=== PATIENT | male | born 1960 | race Caucasian/White ===

== ENCOUNTER 2018-12-02 14:52 | Outpatient (CLI) | payer MEDICARE, MEDICAID | END 2018-12-02 14:53 | disposition home or self-care (01) | LOC: CTENTCT 14:52 | PROVIDERS: ATTEND Specialist | DX: J32.8 Other chronic sinusitis (principal) | CPT/HCPCS: 70486 ==

== ENCOUNTER 2018-12-24 12:49 | Day surgery (SDC) | payer MEDICARE, MEDICAID ==
[2018-12-24] MEDS ORDERED: Oxymetazoline HCl 0.05% ( 15 ML ) ONE ×2 (14:00→14:49)
[2018-12-24] MEDS ORDERED: Lidocaine 1% w/Epinephrine 1:100K 20 ML VIAL ONE (14:49)
[2018-12-24] MEDS ORDERED: EPINEPHrine 1 MG/ML AMP ONE (14:49)
[2018-12-24] MEDS ORDERED: Sodium Chloride 0.9% 0 ML ONE (14:49)
[2018-12-24] MEDS ORDERED: Midazolam HCl 2 mg/2 ml Vial ONE (15:00)
[2018-12-24] MEDS ORDERED: Fentanyl 100 MCG/2 ML VIAL ONE (15:00)
--- NOTE | 2018-12-24 21:54 | OP ---
DATE OF PROCEDURE: 12/24/2018 PREOPERATIVE DIAGNOSES: 1. Chronic sinusitis. 2. Recurrent sinusitis. 3. Hypertrophic inferior turbinates. POSTOPERATIVE DIAGNOSES: 1. Chronic sinusitis. 2. Recurrent sinusitis. 3. Hypertrophic inferior turbinates. PROCEDURES PERFORMED: 1. Bilateral nasal endoscopy with maxillary antrostomy. 2. Bilateral nasal endoscopy with total ethmoidectomy. 3. Bilateral nasal endoscopy with frontal sinusotomy. 4. Bilateral nasal endoscopy with submucosal resection of inferior turbinates. FINDINGS: The patient had huge green foul-smelling infected material evacuated from both maxillary sinuses and sent for culture. DESCRIPTION OF PROCEDURE: BILATERAL NASAL ENDOSCOPY WITH MAXILLARY ANTROSTOMY: The uncinate was then identified and the extent of the uncinate was appreciated by out-fracturing the uncinate with the ball-tip probe. We then used the sickle blade to disarticulate the uncinate from the lateral nasal wall. This was then removed with straight biting and upbiting punches with the remaining shrouds of mucosa and bony septum removed with the micro-debrider. The natural os of the maxillary sinus was then identified and enlarged with the maxillary punches and back biting forceps. BILATERAL NASAL ENDOSCOPY WITH TOTAL ETHMOIDECTOMY: The anterior face of the ethmoid bulla was entered and with the micro-debrider, dissection continued posteriorly to the ground lamella. The limits of dissection included the insertion of the middle turbinate, medial orbital wall, and base of skull. We similarly identified the frontal recess and removed shrouds of bone and debris in that region to obtain patency into the agger nasi region and frontal recess. We then entered the ground lamella and its anteroinferior aspect and proceeded posteriorly, opening the posterior ethmoid air-cell system. Again, the limits of dissection included the base of skull and medial orbital wall. BILATERAL NASAL ENDOSCOPY WITH FRONTAL SINUSOTOMY: Following the ethmoidectomy, we then turned our attention to the frontal nasal recess. The agger nasi cells were addressed and the frontal recess was exposed. The natural opening to the frontal sinus was identified. At this point, any obstructing shrouds of mucosa and bony fragments were removed with a curved microdebrider. The wound was then examined and found to be free of any obstructing debris. We then turned our attention to the contralateral side and performed a similar procedure again under endoscopic visualization using a 45-degree scope. We were able to visualize the frontal recess. Obstructing shrouds of mucosa and bone were removed with a microdebrider. The natural os of frontal sinus was identified and enlarged and irrigated. At this point, the frontal sinusotomy was completed and we turned to the next area of concern. BILATERAL NASAL ENDOSCOPY WITH SUBMUCOSAL RESECTION OF INFERIOR TURBINATES: After consent was obtained, the patient was identified, brought to the operating room, and placed on the operating room table in the supine position. Consent was obtained, notifying the patient of the possibility of additional infections, bleeding, brain injury, and eye/orbital injury. The patient was placed on the operating room table, and general endotracheal anesthesia and intravenous access was obtained. The patient was then positioned, prepped and draped for endoscopic sinus surgery. Nasal preparation included trimming nasal vestibular hairs and spraying in topical Afrin. We then placed Afrin topical solution on nasal pledgets and strategically located them intranasally. The perinasal mucosa was injected with 1% lidocaine with 1:100,000 epinephrine in the submucoperichondrial plane of the septum, lateral nasal wall, and anterior to the uncinate. The patient was then prepped and draped in a sterile fashion and positioned for endoscopic sinus surgery. With the 0-degree endoscope, the patient underwent systematic nasal endoscopy. There were no suspicious internasal masses or lesions identified. We then focused our attention to the osteomeatal complex region under the middle turbinate. The inferior turbinates were visualized with a 0 degree endoscope and outfractured with a Chama elevator. The inferior medial aspect was cauterized with the electrocautery. Hemostasis was obtained . After adequate airway was established, we turned our attention to the contralateral side and used a similar procedure. Again, a Chama elevator was used to outfracture inferior turbinates under endoscopic visualization. With a suction cautery, the free inferior medial aspect was cauterized under direct visualization along the length of the inferior turbinate. At this point, we then turned our attention to the contralateral side and proceeded with endoscopic sinus surgery. At the completion of the case, Rice keel splints were placed in the ethmoid cavities after the ethmoidectomy. There were no complications. The patient tolerated the procedure well and was discharged to the recovery room in stable condition prior to return to the preoperative day stay with ultimate discharge home. Prescriptions for pain medication and antibiotics were provided. The patient received intramuscular Depo-Medrol during the case. Job ID: [id number]
--- NOTE | 2018-12-24 23:53 | EKG ---
Test Reason : PREOP Blood Pressure : / mmHG Vent. Rate : 069 BPM Atrial Rate : 069 BPM P-R Int : 160 ms QRS Dur : 100 ms QT Int : 402 ms P-R-T Axes : 075 -05 087 degrees QTc Int : 430 ms Normal sinus rhythm Abnormal ECG Confirmed by Vincent COLLINS ([id number]) on 12/24/2018 11:53:30 PM Referred By: OSMAN Confirmed By:Vincent COLLINS
== END 2018-12-24 17:15 | disposition home or self-care (01) ==
LOC: SDC 12:49
PROVIDERS: ATTEND Specialist
PROC: 099R8ZZ Drainage of Left Maxillary Sinus, Via Natural or Artificial Opening Endoscopic (ICD-10-PCS; principal; 2018-12-24)
PROC: 099Q8ZZ Drainage of Right Maxillary Sinus, Via Natural or Artificial Opening Endoscopic (ICD-10-PCS; 2018-12-24)
PROC: 09BL8ZZ Excision of Nasal Turbinate, Via Natural or Artificial Opening Endoscopic (ICD-10-PCS; 2018-12-24)
PROC: 09TV8ZZ Resection of Left Ethmoid Sinus, Via Natural or Artificial Opening Endoscopic (ICD-10-PCS; 2018-12-24)
PROC: 09TU8ZZ Resection of Right Ethmoid Sinus, Via Natural or Artificial Opening Endoscopic (ICD-10-PCS; 2018-12-24)
PROC: 09BT8ZZ Excision of Left Frontal Sinus, Via Natural or Artificial Opening Endoscopic (ICD-10-PCS; 2018-12-24)
PROC: 09BS8ZZ Excision of Right Frontal Sinus, Via Natural or Artificial Opening Endoscopic (ICD-10-PCS; 2018-12-24)
DX: J32.1 Chronic frontal sinusitis (principal); J30.89 Other allergic rhinitis; J34.3 Hypertrophy of nasal turbinates; F41.9 Anxiety disorder, unspecified; F32.9 Major depressive disorder, single episode, unspecified; Z79.82 Long term (current) use of aspirin; Z79.899 Other long term (current) drug therapy
CPT/HCPCS: 87070; 87205; 93005; 93010; J0171; J2001; J2250; J3010

== ENCOUNTER 2019-04-08 08:46 | Outpatient (CLI) | payer MEDICARE, MEDICAID ==
[2019-04-08 14:21] LABS: #Eosinphils 0.4 thou/uL (0.0-0.7); #Lymphocytes 2.1 thou/uL (1.20-3.40); #Monocytes 0.9 thou/uL (0.11-0.59); #Neutrophils 5.6 thou/uL (1.40-6.50); %Basophils 0.4 % (0.0-1.0); %Eosinophils 4.1 % (0.0-10.0); %Lymphocytes 23.4 % (21.0-51.0); %Monocytes 9.6 % (0.0-10.0); %Neutrophils 62.5 % (42.0-75.0); Hemoglobin 12.4 g/dL (14.0-18.0); Mean Corpuscular HGB CONC 31.7 g/dL (32.0-36.0); Mean Corpuscular Hemoglobin 25.8 pg (27.0-31.0); Mean Corpuscular Volume 81.3 fL (78.0-98.0); Mean Platelet Volume 7.7 fL (7.4-10.4); Platelet Count 318 thou/uL (130-400); RBC Distribution Width 15.1 % (11.5-14.5); Red Blood Cell (RBC) Count 4.82 mill/uL (4.70-6.10); White Blood Cell (WBC) Count 8.9 thou/uL (4.8-10.8)
[2019-04-08 14:33] LABS: INR-International Normal Ratio 1.1; PTT 27.6 SEC (22.9-36.1); Prothrombin Time 13.8 SEC (12.0-14.7)
[2019-04-08 14:46] LABS: Anion Gap 17 mmol/L (10-20); BUN (Urea Nitrogen) 17 mg/dL (8.4-25.7); Calc. Creatinine Clearance 0 mL/min (70-130); Calcium 9.6 mg/dL (7.8-10.44); Carbon Dioxide 25 mmol/L (22-29); Chloride 105 mmol/L (98-107); Estimated GFR-MDRD 51; Glucose 91 mg/dL (70-105); Potassium 4.2 mmol/L (3.5-5.1); Sodium 143 mmol/L (136-145)
== END 2019-04-08 08:47 | disposition home or self-care (01) ==
LOC: LABBT 08:46
PROVIDERS: ATTEND Orthopaedic Surgery
DX: Z01.818 Encounter for other preprocedural examination (principal); M87.052 Idiopathic aseptic necrosis of left femur
CPT/HCPCS: 80048; 85025; 85610; 85730; 87081; 93005; 93010

== ENCOUNTER 2019-04-08 15:30 | Inpatient (IN) | payer MEDICARE, MEDICAID ==
[2019-04-08 12:50] VITALS: BMI 25.1
--- NOTE | 2019-04-15 09:07 | HP ---
HISTORY OF PRESENT ILLNESS: The patient is a 58-year-old male, HIV positive, with a several-year history of avascular necrosis of the left hip. He was initially followed conservatively, but over the past 6 to 12 months, he has noticed progressive pain, has had progressive x-ray changes and collapse by x-ray and MRI scan. He has had progressive pain despite rest, restriction of activities, use of a walker, anti-inflammatory medications, and lifestyle adjustments. His pain has now progressed to the point that is interfering with day-to-day activities including walking, getting dressed, and sleeping. PAST MEDICAL HISTORY: As noted above. The patient is HIV positive and also has history of testicular cancer. The HIV is under remission, has followed by Dr. Frias in [place], has been seen and cleared him for surgery. He also has history of depression. CURRENT MEDICATIONS: Include: 1. Meloxicam. 2. Epivir. 3. Etravirine. 4. Norvir. 5. Prezista. 6. Fluconazole. 7. Flomax. 8. Crestor. 9. TriCor. 10. Diltiazem. 11. Nexium. 12. Valtrex. 13. Paxil. 14. Wellbutrin. 15. Buspirone. 16. Trazodone. 17. Xanax. 18. Aricept. 19. Namenda. 20. Lovaza. 21. Percocet. ALLERGIES: HE HAS NO KNOWN ALLERGIES. FAMILY HISTORY: Otherwise, unremarkable. SOCIAL HISTORY: Otherwise, unremarkable. REVIEW OF SYSTEMS: Otherwise, unremarkable. PHYSICAL EXAMINATION: GENERAL: Revealed a thin, healthy, somewhat chronically ill-appearing male, who is alert and oriented. HEENT: Unremarkable. NECK: Supple. CHEST: Clear. HEART: Regular rate and rhythm. ABDOMEN: Soft, nontender. RECTAL: Deferred. GENITAL: Deferred. EXTREMITIES: Pertinent findings of the left hip, there is tenderness in the anterior hip. There is left antalgic gait. There is decreased range of motion and groin pain with internal rotation of the hip. Neurovascular exam is intact. Examination of the left knee reveals no point tenderness with full range of motion and no instability. DIAGNOSTIC STUDIES: X-rays of the left hip reveal changes consistent with avascular necrosis with further collapse of the femoral head compared to previous x-rays. This has also been documented on previous MRI scan. X-rays of the left knee are negative except for old Clifford-Schlatter's disease. IMPRESSION: 1. Avascular necrosis and degenerative arthritis, left hip. 2. History of human immunodeficiency virus. PLAN: Left total hip replacement. The nature of the surgery, length of recovery, and potential complications such as infection, loss of motion, incomplete relief, thromboembolic phenomenon, neurovascular injury, leg length discrepancy, possible transfusion, and need for revision have been discussed in detail. Job ID: [id number]
[2019-04-16 16:32] LABS: Bacteria/HPF None Seen HPF (None Seen); Bilirubin Negative (Negative); Blood, Urine Negative (Negative); Clarity Clear (Clear); Glucose, Urine (Dipstick) Normal (Negative); Leukocyte Negative Leu/uL (Negative); Nitrite Negative (Negative); Protein, Urine (Dipstick) 10 mg/dL (Neg-Trace); RBC/HPF 0-3 HPF (0-3); Squamous Epithelial None Seen HPF (0-3); Urobilinogen Normal mg/dL (Less than 2); WBC/HPF 0-3 HPF (0-3)
[2019-04-19] MEDS ORDERED: Tranexamic Acid 1,000 MG/10 ML VIAL ONE ×2 (09:32→13:13)
[2019-04-19] MEDS ORDERED: Sodium Chloride 0.9% 100 ML ONE (09:32)
[2019-04-19] MEDS ORDERED: Fentanyl 100 MCG/2 ML VIAL ONE ×3 (09:39→14:17)
[2019-04-19] MEDS ORDERED: Midazolam HCl 2 mg/2 ml Vial ONE (09:43)
[2019-04-19] MEDS ORDERED: Acetaminophen 500 MG TAB PO PRN (10:21)
[2019-04-19] MEDS ORDERED: Naloxone HCl 0.4 mg/ml Vial IV PRN (10:30)
[2019-04-19] MEDS ORDERED: Promethazine HCl 25 MG SUPP PR PRN (10:30)
[2019-04-19] MEDS ORDERED: HYDROcodone/Acetaminophen 5/325 mg Tablet PO PRN ×2 (10:30)
[2019-04-19] MEDS ORDERED: traMADol HCl 50 MG TAB PO PRN ×3 (10:30→13:11)
[2019-04-19] MEDS ORDERED: diphenhydrAMINE 50 MG/ML VIAL IM PRN (10:30)
[2019-04-19] MEDS ORDERED: Promethazine HCl 25 MG/ML VIAL IM PRN (10:30)
[2019-04-19] MEDS ORDERED: Ondansetron PF 4 MG/2 ML Vial IVP PRN ×2 (10:30→13:11)
[2019-04-19] MEDS ORDERED: Zolpidem Tartrate 5 MG TAB PO PRN ×2 (10:30→13:11)
[2019-04-19] MEDS ORDERED: Bupivacaine 0.25% 10 ML VIAL EPIDURAL PRN (10:30)
[2019-04-19] MEDS ORDERED: Hydrocerin (Eucerin) Cream 120 gm Jar TOP PRN (10:30)
[2019-04-19] MEDS ORDERED: diphenhydrAMINE 50 MG/ML VIAL IVP PRN (10:30)
[2019-04-19] MEDS ORDERED: diphenhydrAMINE 25 MG CAP PO PRN ×2 (10:30→13:11)
[2019-04-19] MEDS ORDERED: Naloxone HCl 0.4 mg/ml Vial IVP PRN (10:30)
[2019-04-19] MEDS ORDERED: PROPOFOL 200 MG/20 ML VIAL ONE (10:40)
[2019-04-19] MEDS ORDERED: Ondansetron PF 4 MG/2 ML Vial ONE (10:40)
[2019-04-19] MEDS ORDERED: Glycopyrrolate 0.2 MG/ML 5 ML SYRINGE ONE ×2 (10:40)
[2019-04-19] MEDS ORDERED: Lidocaine 1% PF 5 ML VIAL ONE (10:40)
[2019-04-19] MEDS ORDERED: Rocuronium Bromide 10 MG/ML (10ML VIAL) ONE (10:40)
[2019-04-19] MEDS ORDERED: ePHEDrine/0.9% NaCl/PF SYRINGE 50 mg/10 ml ONE (10:40)
[2019-04-19] MEDS ORDERED: Lidocaine 1.5% w/Epi 1:200K 30 ML VIAL (Epid Use) ONE (10:40)
[2019-04-19] MEDS ORDERED: Dexamethasone 20 MG/5 ML VIAL ONE (10:40)
[2019-04-19] MEDS ORDERED: PHENYLEPHRINE-NS 100 MCG/ML 10 ML SYRINGE ONE (10:40)
[2019-04-19] MEDS ORDERED: Albuterol Sulfate HFA (OR ONLY) ONE (10:56)
[2019-04-19] MEDS ORDERED: Phenylephrine HCL 10 MG/ML VIAL ONE (11:37)
[2019-04-19] MEDS ORDERED: Albumin 5% 500 ML ONE (12:15)
[2019-04-19] MEDS ORDERED: SUGAMMADEX SODIUM 500 MG/5 ML VIAL ONE (13:04)
[2019-04-19] MEDS ORDERED: Acetaminophen 325 MG TAB PO PRN (13:11)
[2019-04-19] MEDS ORDERED: Acetaminophen/Codeine 30-300mg Tablet PO PRN ×4 (13:11→13:55)
[2019-04-19] MEDS ORDERED: Promethazine HCl 25 MG/ML VIAL SLOW IVP PRN (13:11)
[2019-04-19] MEDS ORDERED: Fentanyl 100 MCG/2 ML VIAL SLOW IVP PRN ×2 (13:11)
[2019-04-19] MEDS ORDERED: PROVENTIL INHALER 6.7 G (200 INHALATIONS) INH PRN (13:11)
[2019-04-19] MEDS ORDERED: Tranexamic Acid 1,000 MG in Sodium Chloride 0.9% 100 ML IVPB SCH ×2 (13:11→13:15)
--- NOTE | 2019-04-19 13:39 | RAD ---
Radiograph left hip 2 views: DATE: 04/19/2019 HISTORY: 58-year-old male status post left hip surgery for chronic pain FINDINGS: Metallic acetabular cup articulates with metallic femoral head prostheses with stem that reaches prox imal femoral diaphysis. Overlying subcutaneous emphysema indicate recent status of surgery. IMPRESSION: Very recently status post total left hip replacement arthroplasty.
--- NOTE | 2019-04-19 13:40 | OP ---
DATE OF PROCEDURE: 04/19/2019 This is Keyon Acevedo PA-C dictating a report for Luis Armando Gordillo MD. ANESTHESIA: General via endotracheal tube, augmented with indwelling epidural. PREOPERATIVE DIAGNOSIS: Left hip avascular necrosis, femoral head. POSTOPERATIVE DIAGNOSIS: Left hip avascular necrosis, femoral head. PROCEDURE: Press-fit left total hip arthroplasty. R D ENGINEER: Keyon Acevedo PA-C. COMPONENTS USED: [employer] Trident PSL press-fit 54 mm cluster acetabular shell with 10-degree polyethylene fixed bearing insert, Accolade II size 4 press-fit hip stem with 127-degree neck angle, and a standard offset 36-mm ceramic femoral head. ESTIMATED BLOOD LOSS: 700 mL. SPECIMENS: None. DRAINS: None. COMPLICATIONS: None. COUNTS: Correct. FINDINGS: Unicompartmental disease to include femoral head avascular necrosis and flattening and loss of cartilage. INPUT: 1200 of LR, 500 albumin, 1 unit of packed red blood cells. OUTPUT: 850 mL of clear yellow urine. INDICATIONS FOR SURGERY: Esequiel is a 58-year-old male, who has had progressive left hip pain and problem with standing and walking for the last 5-7 years. He has failed conservative management and elected to proceed with total hip arthroplasty as definitive treatment of his pain. PROCEDURE IN DETAIL: After informed consent was obtained in the preoperative holding area, the patient was taken to the operative suite where general anesthesia was induced. The patient was then positioned in the lateral decubitus position. The hip was then prepped and draped in usual sterile fashion. The patient received preoperative antibiotics. Prior to incision, time-out was called and all members of the surgical team agreed upon site, surgeon, and patient. After this, a longitudinal incision was made directly over the trochanter, noted by palpation extending 2 fingerbreadths above and below the trochanter. The deeper subcutaneous layer was undermined with Bovie electrocautery. The iliotibial band was encountered and incised sharply and the plane below this was developed bluntly. A Charnley retractor was placed to hold this opened. The lateral aspect of the trochanter and the abductor muscles were encountered and then reflected anteriorly off the trochanter using Bovie electrocautery. Once this was completed, the anterior capsule was then encountered and identified and copious capsulotomy was carried out, exposing the femoral neck and head. Dislocation maneuver was then performed and an in situ provisional neck cut was then made using the oscillating saw. Attention was then turned to acetabular preparation. Sequential reaming was carried out up to the appropriate diameter and a trial was then malleted into place with good firm resistance and no pullout. The permanent acetabular shell was then malleted squarely into place, as was the appropriate liner. Once completed, the wound was copiously irrigated and attention was then turned to femoral preparation. Flexion and external rotation were performed of the exposed thigh and femoral elevators were then placed at the proximal aspect of the wound. Canal finder was used to establish the length of the canal and sequential reaming was carried out, followed by broaching. Once the appropriate stability was established with the trial broaches with flexion, extension and rotational stability, we did trial with neutral and 2 mm offset incremental necks. Once the appropriate size was decided upon, with good stability noted with flexion, extension, internal and external rotation and shuck being negative, we removed the femoral trial broach and malletted into place the permanent prosthesis with good firm fit, which was also stable to rotation. Again, the hip felt very stable to flexion, extension, internal and external rotation. Leg lengths appeared near anatomic clinically and we were quite happy with prosthesis placement. Copious irrigation was then carried out through the entirety of the wound. Primary closure of the abductors was accomplished with interrupted #2 Vicryl [id number] stitches and the IT band was then closed with interrupted #2 Vicryl, oversewn with a #2 running barbed Quill stitch. Subcutaneous fascia was closed with running barbed Quill stitch and a subcuticular Monocryl barbed Quill stitch was used for skin closure and augmented with skin cement. A sterile dressing was applied. The procedure was terminated without any complication. All counts were correct. The patient was awakened in the operative suite and taken to the recovery room in stable condition. Job ID: [id number]
[2019-04-19] MEDS ORDERED: Aspirin 81 mg Enteric Coated Tablet PO SCH (14:00)
[2019-04-19] MEDS ORDERED: Sodium Chloride 0.9% 10 ML ONE (14:21)
[2019-04-19] MEDS ORDERED: CEFAZOLIN 2 GM in Premix Bag 1 BAG IVPB SCH (17:30)
[2019-04-19] MEDS: Sodium Chloride 0.9% 1,000 ML IV SCH ×2 (18:03→22:43)
[2019-04-19] MEDS: ALPRAZolam 0.5 MG TAB PO SCH ×2 (18:03→20:42)
[2019-04-19] MEDS ORDERED: Dextrose 5% in Water 1,000 ML IV PRN (18:59)
[2019-04-19] MEDS ORDERED: Dextrose 50% Abboject 50 ML SYRINGE IVP PRN (18:59)
[2019-04-19] MEDS: CEFAZOLIN 2 GM in Premix Bag 1 BAG IVPB SCH (19:39)
[2019-04-19] MEDS: DULoxetine 60 MG CAP PO SCH (20:42)
[2019-04-19] MEDS: Rosuvastatin 20 MG TAB PO SCH (20:42)
[2019-04-19] MEDS: Senokot S 8.6-50 MG TAB PO SCH (20:42)
[2019-04-19] MEDS: Tamsulosin HCl 0.4 MG CAP PO SCH (20:42)
[2019-04-19] MEDS: Aspirin 81 mg Enteric Coated Tablet PO SCH (20:42)
[2019-04-19] MEDS: Ferrous Gluconate 324 MG TAB PO SCH (20:42)
[2019-04-19] MEDS: Donepezil HCl 5 MG TAB PO SCH (20:43)
[2019-04-19] MEDS ORDERED: FLUTICASONE PROPIONATE INH SCH (21:00)
[2019-04-19] MEDS ORDERED: Vancomycin HCl 1 GM in Premix Bag 1 BAG IVPB SCH (21:30)
[2019-04-19] MEDS: Pregabalin 75 MG CAP PO SCH (21:30)
[2019-04-19] MEDS: HumaLOG 300 UNITS/3 ML VIAL SC PRN (21:44)
[2019-04-19] MEDS ORDERED: HumaLOG 300 UNITS/3 ML VIAL SC PRN (22:07)
[2019-04-19 22:28] LABS: #Lymphocytes 0.8 thou/uL (1.20-3.40); #Monocytes 0.4 thou/uL (0.11-0.59); #Neutrophils 9.1 thou/uL (1.40-6.50); %Eosinophils 0.2 % (0.0-10.0); %Lymphocytes 7.6 % (21.0-51.0); %Monocytes 3.7 % (0.0-10.0); %Neutrophils 88.4 % (42.0-75.0); Hemoglobin 10.5 g/dL (14.0-18.0); Mean Corpuscular HGB CONC 32.1 g/dL (32.0-36.0); Mean Corpuscular Hemoglobin 26.2 pg (27.0-31.0); Mean Corpuscular Volume 81.6 fL (78.0-98.0); Mean Platelet Volume 7.6 fL (7.4-10.4); Platelet Count 259 thou/uL (130-400); RBC Distribution Width 14.7 % (11.5-14.5); White Blood Cell (WBC) Count 10.3 thou/uL (4.8-10.8)
--- NOTE | 2019-04-19 22:42 | CON ---
DATE OF CONSULTATION: 04/19/2019 TIME OF ASSESSMENT: 2199. REASON FOR CONSULTATION: Medical management. HISTORY OF PRESENT ILLNESS: Mr. Haynes is a pleasant 58-year-old gentleman who is status post left hip replacement with a history of avascular necrosis. The patient apparently had persisting and worsening pain over the last year and the decision was made for him to undergo the hip replacement. He has had the surgery done earlier today. Postoperative imaging confirmed adequate placement of the prosthesis. The patient states he has felt well overall since surgery. He does report having issues with indigestion and has started taking his home supply of Dexilant. He reports having history of Grier's esophagus. He has been able to tolerate oral intake without any nausea or vomiting. Reports having a mild headache earlier in the day, but it was quickly relieved with Tylenol. He is otherwise without complaints. PAST MEDICAL HISTORY: 1. HIV positive, under remission, followed by Dr. Gaona in [place], seen and cleared for surgery. 2. History of testicular cancer. 3. Depression. 4. Grier's esophagus. 5. Chronic sinusitis. 6. Hyperlipidemia. 7. Hypertension. 8. Hepatitis. 9. Anxiety. PAST SURGICAL HISTORY: Status post left total hip replacement. ALLERGIES: NO KNOWN DRUG ALLERGIES. SOCIAL HISTORY: The patient states he recently quit smoking in January in preparation for surgery. Denies any heavy alcohol use. Denies any illicit drug use. CURRENT MEDICATIONS: 1. Meloxicam. 2. Epivir. 3. Etravirine. 4. Norvir. 5. Prezista. 6. Fluconazole. 7. Flomax. 8. Crestor. 9. TriCor. 10. Diltiazem. 11. Nexium. 12. Valtrex. 13. Paxil. 14. Wellbutrin. 15. Buspirone. 16. Trazodone. 17. Xanax. 18. Aricept. 19. Namenda. 20. Lovaza. 21. Percocet. PHYSICAL EXAMINATION: GENERAL: The patient appears well developed, in no acute distress. VITAL SIGNS: Temperature 98.3, pulse 64, respirations 16, O2 saturation 95% on 2 L per nasal cannula, blood pressure 147/94. HEENT: Normocephalic and atraumatic. Pupils are equal, round, and reactive to light. Sclerae without icterus. Oropharynx is clear. NECK: Supple. LUNGS: Clear to auscultation bilaterally without any wheezes, rales, or rhonchi. CARDIAC: Regular rate and rhythm. ABDOMEN: Soft, nontender, and nondistended. Normoactive bowel sounds present. No guarding or rigidity. No renal angle tenderness. EXTREMITIES: No lower extremity edema. Mechanical SCDs in place. NEUROLOGIC: Alert and oriented x3. SKIN: Warm and dry. IMPRESSION AND PLAN: Mr. Haynes is a 58-year-old gentleman who developed avascular necrosis of the left hip and has now undergone a left total hip replacement. The patient reports having mild headache after surgery, which quickly improved after given Tylenol. He is without any major complaints at this time. He has restarted Dexilant which he takes at home for reflux/Grier's esophagus. The patient had postoperative laboratory studies done April 08, 2019, and at that time, he was noted to have a BUN of 17, creatinine of 1.44, GFR 51. We will obtain repeat laboratory studies to reassess renal function and other blood counts. He is receiving IV fluids. We will check BMP. The patient without any complaints at this present time. We will continue to follow the patient with you. Thank for this consultation. Case was discussed with attending who agrees with plan of care as described above. Job ID: [id number]
[2019-04-19 22:46] LABS: Anion Gap 12 mmol/L (10-20); BUN (Urea Nitrogen) 20 mg/dL (8.4-25.7); Calc. Creatinine Clearance 60 mL/min (70-130); Calcium 8.8 mg/dL (7.8-10.44); Carbon Dioxide 30 mmol/L (22-29); Chloride 103 mmol/L (98-107); Estimated GFR-MDRD 49; Glucose 186 mg/dL (70-105); Potassium 4.7 mmol/L (3.5-5.1); Sodium 140 mmol/L (136-145)
[2019-04-20] MEDS: fentaNYL Citrate/PF 500 MCG, Bupivacaine 10 ML in Sodium Chloride 0.9% 80 ML EPIDURAL SCH ×2 (04:09→22:10)
[2019-04-20] MEDS: CEFAZOLIN 2 GM in Premix Bag 1 BAG IVPB SCH (04:22)
[2019-04-20 05:03] LABS: #Monocytes 0.7 thou/uL (0.11-0.59); #Neutrophils 8.4 thou/uL (1.40-6.50); %Basophils 0.3 % (0.0-1.0); %Eosinophils 0.2 % (0.0-10.0); %Lymphocytes 9.5 % (21.0-51.0); %Neutrophils 83.1 % (42.0-75.0); Hemoglobin 9.4 g/dL (14.0-18.0); Mean Corpuscular HGB CONC 31.9 g/dL (32.0-36.0); Mean Corpuscular Volume 81.6 fL (78.0-98.0); Mean Platelet Volume 7.4 fL (7.4-10.4); Platelet Count 237 thou/uL (130-400); RBC Distribution Width 14.7 % (11.5-14.5); Red Blood Cell (RBC) Count 3.61 mill/uL (4.70-6.10); White Blood Cell (WBC) Count 10.1 thou/uL (4.8-10.8)
[2019-04-20 05:24] LABS: Anion Gap 12 mmol/L (10-20); BUN (Urea Nitrogen) 17 mg/dL (8.4-25.7); Calc. Creatinine Clearance 79 mL/min (70-130); Calcium 8.1 mg/dL (7.8-10.44); Carbon Dioxide 28 mmol/L (22-29); Chloride 106 mmol/L (98-107); Estimated GFR-MDRD 67; Glucose 104 mg/dL (70-105); Potassium 4.5 mmol/L (3.5-5.1); Sodium 141 mmol/L (136-145)
[2019-04-20] MEDS ORDERED: Diabetic Tussin 200 MG/10 ML UDCUP PO PRN (07:27)
[2019-04-20] MEDS ORDERED: Loperamide HCl 2 MG CAP PO PRN (07:27)
[2019-04-20] MEDS ORDERED: Calcium Carbonate 500 MG ChewTAB PO PRN (07:27)
[2019-04-20] MEDS ORDERED: Bisacodyl 10 MG SUPP PR PRN (07:27)
[2019-04-20] MEDS ORDERED: Sodium Chloride 0.65% Nasal 44 ML BOT EA NARE PRN (07:27)
[2019-04-20] MEDS ORDERED: hydrALAZINE 20 MG/ML VIAL SLOW IVP PRN (07:27)
[2019-04-20] MEDS ORDERED: Cepastat Lozenges 1 LOZ PO PRN (07:27)
[2019-04-20] MEDS ORDERED: Ondansetron ODT 4 MG TAB PO PRN (07:27)
[2019-04-20] MEDS ORDERED: OMEGA ACID PO SCH ×2 (09:00)
[2019-04-20] MEDS ORDERED: FLUTICASONE PROPIONATE INH SCH (09:00)
[2019-04-20] MEDS: Aspirin 81 mg Enteric Coated Tablet PO SCH ×2 (10:02→20:02)
[2019-04-20] MEDS: Pregabalin 75 MG CAP PO SCH ×2 (10:02→20:39)
[2019-04-20] MEDS: ALPRAZolam 0.5 MG TAB PO SCH ×3 (10:02→20:02)
[2019-04-20] MEDS: DULoxetine 60 MG CAP PO SCH ×2 (10:02→20:02)
[2019-04-20] MEDS: Senokot S 8.6-50 MG TAB PO SCH ×2 (10:03→20:02)
[2019-04-20] MEDS: Mirtazapine 15 MG TAB PO SCH (10:03)
[2019-04-20] MEDS: Multivitamin W/ Minerals 1 TAB PO SCH (10:03)
[2019-04-20] MEDS: Ferrous Gluconate 324 MG TAB PO SCH ×2 (10:04→20:01)
[2019-04-20] MEDS: Dolutegravir Sodium [Tivicay] 50 MG TAB PO SCH (10:05)
[2019-04-20] MEDS: Emtricitabine/Tenofov Alafenam [Descovy 200-25 Mg Tablet] 1 TAB PO SCH (10:06)
[2019-04-20] MEDS: DEXILANT 60 MG PO SCH (10:07)
[2019-04-20] MEDS: Sodium Chloride 0.9% 1,000 ML IV SCH ×2 (10:11→16:45)
[2019-04-20] MEDS: Fenofibrate Nanocrystallized 145 MG TAB PO SCH (10:13)
[2019-04-20] MEDS: HumaLOG 300 UNITS/3 ML VIAL SC PRN (13:02)
--- NOTE | 2019-04-20 13:03 | PDOC.HOSPP ---
- Subjective Encounter Date: 04/20/19 Encounter Time: 07:00 Subjective: Patient seen and examined. No new complaints. No overnight events - Objective Vital Signs & Weight: Vital Signs (12 hours) Temp Pulse Resp BP Pulse Ox 04/20/19 12:37 98.0 F 76 16 112/62 95 04/20/19 08:48 72 16 04/20/19 07:15 98.1 F 65 14 106/66 91 L 04/20/19 04:32 98.9 F 72 16 126/74 96 Weight Weight 170 lb I&O: 04/19/19 04/20/19 04/21/19 06:59 06:59 06:59 Intake Total 2440 Output Total 2450 Balance -10 Result Diagrams: 04/20/19 04:41 04/20/19 04:41 Additional Labs: Accuchecks 04/20/19 04/20/19 04/19/19 11:21 05:38 21:42 POC Glucose 175 H 113 H 312 H 04/19/19 04/19/19 16:54 13:27 POC Glucose 151 H 134 H Hospitalist ROS - Review of Systems ENT: denies: ear pain, ear discharge, nose pain, nose discharge, nose congestion , mouth pain, mouth swelling, throat pain, throat swelling, other Respiratory: denies: cough, dry, shortness of breath, hemoptysis, SOB with excertion, pleuritic pain, sputum, wheezing, other Cardiovascular: denies: chest pain, palpitations, orthopnea, paroxysmal noc. dyspnea, edema, light headedness, other Gastrointestinal: denies: nausea, vomiting, abdominal pain, diarrhea, constipation, melena, hematochezia, other Genitourinary: denies: dysuria, frequency, incontinence, hematuria, retention, other Musculoskeletal: denies: neck pain, shoulder pain, arm pain, back pain, hand pain, leg pain, foot pain, other - Medication Medications: Active Medications Generic Name Dose Route Start Last Admin Trade Name Freq PRN Reason Stop Dose Admin Acetaminophen 650 mg 04/19/19 13:11 04/19/19 18:42 Tylenol PO 650 mg Q4H PRN Administration Headache/Fever or Pain Albuterol/Ipratropium 3 ml 04/19/19 19:00 04/20/19 12:06 Duoneb NEB Not Given [id number] JAC Alprazolam 0.5 mg 04/19/19 15:00 04/20/19 10:02 Xanax PO 0.5 mg TID JAC Administration Aspirin 81 mg 04/19/19 21:00 04/20/19 10:02 Ecotrin PO 81 mg BID JAC Administration Donepezil HCl 5 mg 04/19/19 21:00 04/19/19 20:43 Aricept PO 5 mg HS JAC Administration Duloxetine HCl 60 mg 04/19/19 21:00 04/20/19 10:02 Cymbalta PO 60 mg BID JAC Administration Fenofibrate 145 mg 04/20/19 09:00 04/20/19 10:13 Tricor PO 145 mg QAM JAC Administration Ferrous Gluconate 324 mg 04/19/19 21:00 04/20/19 10:04 Fergon PO 324 mg BID JAC Administration Fentanyl Citrate 500 mcg/ 100 mls @ 6 mls/hr 04/19/19 10:30 04/20/19 04:09 Bupivacaine HCl 10 ml/ Sodium EPIDURAL 100 mls Chloride INF JAC Administration Sodium Chloride 1,000 mls @ 100 mls/hr 04/19/19 13:11 04/20/19 10:11 Normal Saline 0.9% IV Not Given .Q10H JAC Insulin Human Lispro 0 units 04/19/19 18:59 04/19/19 21:44 Humalog SC 8 unit .MODERATE SLIDING SC PRN Administration MODERATE SLIDING SCALE Protocol Iron/Minerals/Multivitamins 1 tab 04/20/19 09:00 04/20/19 10:03 Theragran M PO 1 tab DAILY JAC Administration Mirtazapine 15 mg 04/20/19 09:00 04/20/19 10:03 Remeron PO 15 mg QAM JAC Administration Ondansetron HCl 4 mg 04/19/19 13:11 04/20/19 03:50 Zofran IVP 4 mg Q6H PRN Administration Nausea/Vomiting Dolutegravir Sodium 1 each 04/20/19 09:00 04/20/19 10:05 [Tivicay] 50 Mg Tab PO 1 each DAILY JAC Administration Emtricitabine/ 1 each 04/20/19 09:00 04/20/19 10:06 Tenofov Alafenam [ PO 1 each Descovy 200-25 Mg QAM JAC Administration Tablet] 1 Tab Linaclotide [Linzess 1 each 04/20/19 09:00 04/20/19 10:04 ] 290 Mcg Capsule PO 1 each QAM JAC Administration Diltiazem Hcl Cd 240 2 each 04/20/19 09:00 04/20/19 10:05 Mg Capsule PO 2 each BID JAC Administration Dexilant Dr 60mg 1 each 04/20/19 09:00 04/20/19 10:07 PO 1 each DAILY JAC Administration Pregabalin 300 mg 04/19/19 21:00 04/20/19 10:02 Lyrica PO 300 mg BID JAC Administration Quetiapine Fumarate 50 mg 04/19/19 21:00 04/19/19 20:42 Seroquel PO 50 mg HS JAC Administration Rosuvastatin Calcium 20 mg 04/19/19 21:00 04/19/19 20:42 Crestor PO 20 mg HS JAC Administration Senna/Docusate Sodium 2 tab 04/19/19 21:00 04/20/19 10:03 Senokot S PO 2 tab BID JAC Administration Tamsulosin HCl 0.4 mg 04/19/19 21:00 04/19/19 20:42 Flomax PO 0.4 mg HS JAC Administration Zolpidem Tartrate 5 mg 04/19/19 10:30 04/19/19 20:42 Ambien PO 5 mg HSPRN PRN Administration Insomnia - Exam General Appearance: NAD, awake alert Eye: PERRL, anicteric sclera ENT: normocephalic atraumatic, no oropharyngeal lesions Neck: supple, symmetric, no JVD, no thyromegaly Heart: RRR, no murmur, no gallops, no rubs Respiratory: CTAB, no wheezes, no rales, no ronchi Gastrointestinal: soft, non-tender, non-distended, normal bowel sounds Extremities: no cyanosis, no clubbing, no edema Skin: normal turgor, no lesions Neurological: no focal deficits Musculoskeletal: normal tone, normal strength Psychiatric: normal affect, normal behavior Hosp A/P (1) ZAID (acute kidney injury) Code(s): N17.9 - ACUTE KIDNEY FAILURE, UNSPECIFIED Status: Acute (2) Status post left hip replacement Code(s): Z96.642 - PRESENCE OF LEFT ARTIFICIAL HIP JOINT Status: Acute (3) Anemia due to acute blood loss Code(s): D62 - ACUTE POSTHEMORRHAGIC ANEMIA Status: Acute (4) HIV (human immunodeficiency virus infection) Code(s): B20 - HUMAN IMMUNODEFICIENCY VIRUS [HIV] DISEASE Status: Chronic (5) Diabetes type 2, controlled Code(s): E11.9 - TYPE 2 DIABETES MELLITUS WITHOUT COMPLICATIONS Status: Chronic (6) Hypertension Code(s): I10 - ESSENTIAL (PRIMARY) HYPERTENSION Status: Chronic (7) Dyslipidemia Code(s): E78.5 - HYPERLIPIDEMIA, UNSPECIFIED Status: Chronic (8) Anemia of chronic disease Code(s): D63.8 - ANEMIA IN OTHER CHRONIC DISEASES CLASSIFIED ELSEWHERE Status : Chronic (9) Anxiety and depression Code(s): F41.9 - ANXIETY DISORDER, UNSPECIFIED; F32.9 - MAJOR DEPRESSIVE DISORDER, SINGLE EPISODE, UNSPECIFIED Status: Chronic - Plan old records reviewed/req, PT/OT, DVT proph w/SCDs 04/20/19 medication reviewed as above, symptomatic treatment, supportive care continue post operative care continue PT/OT Epidural as per anesthesia
[2019-04-20] MEDS: Tamsulosin HCl 0.4 MG CAP PO SCH (20:01)
[2019-04-20] MEDS: Donepezil HCl 5 MG TAB PO SCH (20:02)
[2019-04-20] MEDS: Rosuvastatin 20 MG TAB PO SCH (20:02)
[2019-04-21 05:31] LABS: #Eosinphils 0.1 thou/uL (0.0-0.7); #Lymphocytes 1.5 thou/uL (1.20-3.40); #Monocytes 0.8 thou/uL (0.11-0.59); #Neutrophils 4.8 thou/uL (1.40-6.50); %Basophils 0.3 % (0.0-1.0); %Eosinophils 1.6 % (0.0-10.0); %Lymphocytes 21.2 % (21.0-51.0); %Monocytes 10.8 % (0.0-10.0); Hemoglobin 9.4 g/dL (14.0-18.0); Mean Corpuscular HGB CONC 30.3 g/dL (32.0-36.0); Mean Corpuscular Volume 82.6 fL (78.0-98.0); Mean Platelet Volume 7.7 fL (7.4-10.4); Platelet Count 252 thou/uL (130-400); RBC Distribution Width 15.1 % (11.5-14.5); Red Blood Cell (RBC) Count 3.75 mill/uL (4.70-6.10); White Blood Cell (WBC) Count 7.3 thou/uL (4.8-10.8)
[2019-04-21] MEDS: Sodium Chloride 0.9% 1,000 ML IV SCH ×2 (05:33→15:34)
[2019-04-21 05:43] LABS: Anion Gap 10 mmol/L (10-20); BUN (Urea Nitrogen) 13 mg/dL (8.4-25.7); Calc. Creatinine Clearance 83 mL/min (70-130); Calcium 8.4 mg/dL (7.8-10.44); Carbon Dioxide 31 mmol/L (22-29); Chloride 101 mmol/L (98-107); Estimated GFR-MDRD 71; Glucose 116 mg/dL (70-105); Potassium 4.3 mmol/L (3.5-5.1); Sodium 138 mmol/L (136-145)
[2019-04-21] MEDS: Emtricitabine/Tenofov Alafenam [Descovy 200-25 Mg Tablet] 1 TAB PO SCH (08:52)
[2019-04-21] MEDS: Dolutegravir Sodium [Tivicay] 50 MG TAB PO SCH (08:53)
[2019-04-21] MEDS: DEXILANT 60 MG PO SCH (08:54)
[2019-04-21] MEDS: Senokot S 8.6-50 MG TAB PO SCH (08:55)
[2019-04-21] MEDS: Multivitamin W/ Minerals 1 TAB PO SCH (08:55)
[2019-04-21] MEDS: Pregabalin 75 MG CAP PO SCH (08:55)
[2019-04-21] MEDS: ALPRAZolam 0.5 MG TAB PO SCH ×2 (08:55→15:33)
[2019-04-21] MEDS: Aspirin 81 mg Enteric Coated Tablet PO SCH (08:55)
[2019-04-21] MEDS: Ferrous Gluconate 324 MG TAB PO SCH (08:55)
[2019-04-21] MEDS: DULoxetine 60 MG CAP PO SCH (08:57)
[2019-04-21] MEDS: Mirtazapine 15 MG TAB PO SCH (08:57)
[2019-04-21] MEDS: Fenofibrate Nanocrystallized 145 MG TAB PO SCH (08:58)
[2019-04-21] MEDS ORDERED: HYDROcodone/Acetaminophen 10/325 mg Tablet PO PRN ×2 (11:34)
[2019-04-21] MEDS: HumaLOG 300 UNITS/3 ML VIAL SC PRN (11:54)
--- NOTE | 2019-04-21 13:26 | PRG ---
DATE OF SERVICE: 04/21/2019 SUBJECTIVE: The patient is seen and examined at the bedside. He does not have much complaints to offer. His epidural was taken out this morning by anesthesiologist. His appetite is good. OBJECTIVE: VITAL SIGNS: Blood pressure is 113/62, pulse is 77, respirations 14, O2 saturation is 94% on room air, and his temperature is 98.3. HEENT: Head is atraumatic and normocephalic. Eyes are PERRLA. Sclerae are nonicteric. Oral mucosa is moist. NECK: Supple. LUNGS: Few crackles at the right base. HEART: S1 and S2 normal. No S3. No S4. ABDOMEN: Soft, nontender, and obese. EXTREMITIES: Left hip area with dressing in place. Some swelling around the area. NEUROLOGICAL: He is alert and oriented x4. There is no any motor or sensory deficits. LABORATORY DATA: Labs showed white count 7.3, hemoglobin 9.4, hematocrit 31.0, and platelet count 252,000. Normal electrolytes; CO2 of 31, BUN 13, creatinine 1.07, and glycemia is ranging from 129 to 170. IMPRESSION: 1. Chronic obstructive pulmonary disease. 2. Status post left hip replacement. 3. Acute kidney injury. 4. Anemia due to acute blood loss. 5. Human immunodeficiency virus. 6. Diabetes mellitus type 2, controlled. 7. Hypertension, controlled. 8. Dyslipidemia, chronic, controlled. 9. Anxiety and depression, chronic, controlled. PLAN: Continue p.r.n. pain management. Continue PT and OT. Continue Accu-Cheks and coverage with sliding scale. Continue DuoNeb p.r.n. and aspirin 81 mg twice a day for DVT prophylaxis. Job ID: [id number]
[2019-04-21 15:49] VITALS: BP 103/57; TEMP 97.6
== END 2019-04-21 19:25 | disposition home health service (06) | DRG 470 ==
LOC: SURG A 04-19 08:29
PROVIDERS: ADMIT Orthopaedic Surgery; ATTEND Orthopaedic Surgery
PROC: 0SRB02A Replacement of Left Hip Joint with Metal on Polyethylene Synthetic Substitute, Uncemented, Open Approach (ICD-10-PCS; principal; 2019-04-19)
DX: M87.852 Other osteonecrosis, left femur (principal); D62 Acute posthemorrhagic anemia; N17.9 Acute kidney failure, unspecified; F32.9 Major depressive disorder, single episode, unspecified; Z85.47 Personal history of malignant neoplasm of testis; Z21 Asymptomatic human immunodeficiency virus [HIV] infection status; F41.9 Anxiety disorder, unspecified; E78.5 Hyperlipidemia, unspecified; I10 Essential (primary) hypertension; K75.9 Inflammatory liver disease, unspecified; K21.9 Gastro-esophageal reflux disease without esophagitis; K22.70 Barrett's esophagus without dysplasia; E11.9 Type 2 diabetes mellitus without complications; J44.9 Chronic obstructive pulmonary disease, unspecified
CPT/HCPCS: 36415; 36416; 36430; 80048; 81001; 83880; 85025; 86850; 86900; 86901; 94640; J0690; J1100; J2001; J2250; J2370; J2405; J2704; J3010; J3370; J3490; J7620; P9016; P9045

== ENCOUNTER 2019-11-17 11:49 | Observation (INO) | payer MEDICARE, MEDICAID ==
[2019-11-12 10:02] VITALS: BMI 24.0
[~2019-11-17 11:49] MED LIST: Albuterol Sulfate HFA (OR ONLY) ONE; EPHEDRINE 25 MG/5 ML SYRINGE ONE; Glycopyrrolate 0.2 MG/ML 5 ML SYRINGE ONE; Lidocaine 1% PF 5 ML VIAL ONE; Ondansetron PF 4 MG/2 ML Vial ONE; PHENYLEPHRINE-NS 100 MCG/ML 10 ML SYRINGE ONE; PROPOFOL 200 MG/20 ML VIAL ONE; Rocuronium Bromide 10 MG/ML (10ML VIAL) ONE; Succinylcholine Chloride 20 MG/ML 10 ml SYRINGE FS ONE
[2019-11-17] MEDS ORDERED: Midazolam HCl 2 mg/2 ml Vial ONE (12:31)
[2019-11-17] MEDS ORDERED: Fentanyl 100 MCG/2 ML VIAL ONE (12:31)
[2019-11-17] MEDS ORDERED: HYDROmorphone 2 MG/ML VIAL ONE (12:31)
[2019-11-17] MEDS ORDERED: HYDROmorphone 0.5 MG/0.5 ML SYRINGE ONE (12:50)
[2019-11-17] MEDS ORDERED: Lidocaine 1% w/Epinephrine 1:100K 20 ML VIAL ONE (12:55)
[2019-11-17] MEDS ORDERED: Bupivacaine 0.25% HCL 30 ML VIAL ONE (12:55)
[2019-11-17] MEDS ORDERED: Phenylephrine 10 MG/ML VIAL ONE ×2 (14:23)
[2019-11-17] MEDS ORDERED: SUGAMMADEX SODIUM 200 MG/2 ML VIAL ONE (15:01)
[2019-11-17] MEDS ORDERED: Promethazine HCl 25 MG/ML VIAL IM PRN (15:36)
[2019-11-17] MEDS ORDERED: PROVENTIL INHALER 6.7 G (200 INHALATIONS) INH PRN (15:36)
[2019-11-17] MEDS ORDERED: Dextrose 50% Abboject 50 ML SYRINGE SLOW IVP PRN (15:36)
[2019-11-17] MEDS ORDERED: Ondansetron PF 4 MG/2 ML Vial IVP PRN (15:36)
[2019-11-17] MEDS ORDERED: Dextrose 5% in Water 1,000 ML IV PRN (15:36)
[2019-11-17] MEDS ORDERED: hydrALAZINE 20 MG/ML VIAL SLOW IVP PRN (15:36)
[2019-11-17] MEDS ORDERED: ALPRAZolam 0.5 MG TAB PO PRN (15:36)
[2019-11-17] MEDS ORDERED: Sodium Chloride For Inhalation 0.9% 3 ML NEB ONE (16:06)
[2019-11-17] MEDS ORDERED: Albuterol Sulfate 1.25 MG/3 ML NEB ONE (16:06)
[2019-11-17] MEDS: Sodium Chloride 0.9% 1,000 ML IV SCH (17:00)
[2019-11-17] MEDS ORDERED: Morphine 2 MG/ML VIAL SLOW IVP PRN (17:06)
[2019-11-17] MEDS ORDERED: Morphine 4 MG/ML VIAL SLOW IVP PRN (17:06)
[2019-11-17] MEDS ORDERED: Icosapent Ethyl 1 GM CAPSULE PO SCH (17:45)
[2019-11-17] MEDS ORDERED: Pantoprazole 40 MG VIAL IVP SCH (18:00)
--- NOTE | 2019-11-17 18:50 | OP ---
DATE OF PROCEDURE: 11/17/2019 PREOPERATIVE DIAGNOSIS: Hiatal hernia. POSTOPERATIVE DIAGNOSIS: Hiatal hernia. PROCEDURES PERFORMED: 1. Laparoscopic hiatal hernia repair with Susana fundoplication. 2. Esophagogastroduodenoscopy. ANESTHESIA: General. ESTIMATED BLOOD LOSS: Minimal. COMPLICATIONS: None. SPECIMENS: None. FINDINGS: Normal postoperative EGD. DESCRIPTION OF PROCEDURE: The patient was taken to the operating room and laid supine on the operating room table. After general anesthetic was obtained, the arms and legs were double strapped to a leg split table. The legs were split. The abdomen was shaved, prepped, and draped in a sterile fashion. OG tube had been used to decompress the stomach. Left subcostal 5-mm Optiview trocar placed in the usual fashion. High-flow pneumoperitoneum obtained. A 5-mm port was placed just to the patient's right xiphoid. 5-mm ports were placed in the left and right abdomen down near the umbilicus. The left subcostal 5-mm port switched out to an 8-mm port and a camera 5 mm ports just placed above the umbilicus. Snake liver retractor was brought into the right lower quadrant incision and used to raise the liver off the GE junction. The patient was placed in reverse Trendelenburg position. The gastrohepatic ligament was opened, exposing the right dale of the diaphragm. The mediastinum was entered and a circumferential dissection of the esophagus was performed. The right and left crura could be seen posterior. Next, the stomach was flipped over, and on the patient's left, the short gastrics were taken down in the upper stomach and all posterior angle of His attachments were released. Left dale was found and the mediastinum was entered on the left side as well. Complete circumferential dissection of the esophagus was performed, bringing the GE junction back down into the abdominal cavity. A Caldwell was passed posterior to the GE junction and held in place using a PDS endoloop. A 44-bougie was brought in and its tip left in the antrum of the stomach. Three Ethibond sutures and Ti-KNOT were used to close the crural defect posterior. The fundus on the left was able to be passed through the posterior window made to the patient's right. This fundus was brought up anteriorly and a 360-degree fundoplication was performed by sewing this over the top of the GE junction to the residual fundus on the patient's left side. This is a floppy wrap. Care was taken to avoid, making sure it was not tight and care was taken to avoid the fundus being twisted as it was brought back through the retrogastric window. Three Ethibond sutures and the Ti-KNOT system were used to affix the stomach anteriorly for the wrap. The bougie was removed. An EGD scope was passed from the esophagus, stomach, to the level of the duodenum without obstruction. There was no stricture at the diaphragmatic hiatus or at the GE junction. No evidence of injury. The EGD scope was used to decompress the stomach and was pulled and removed. The liver retractor was removed under direct visualization without injury. All port sites were infiltrated using local anesthetic. All ports were removed under camera visualization. Pneumoperitoneum was let down. A 4-0 Monocryl and Dermabond used to close all skin incisions. The patient was sent to Recovery in stable condition. All instrument counts, needle counts, and lap counts were correct. Job ID: [id number]
[2019-11-17] MEDS ORDERED: Enoxaparin Sodium 40 MG/0.4 ML SYRINGE SC SCH (21:00)
[2019-11-17] MEDS ORDERED: Donepezil HCl 5 MG TAB PO SCH (21:00)
[2019-11-17] MEDS ORDERED: (Linaclotide [Linzess] 1 TAB) PO SCH (21:00)
[2019-11-17] MEDS ORDERED: Tamsulosin HCl 0.4 MG CAP PO SCH (21:00)
[2019-11-17] MEDS: Pregabalin 75 MG CAP PO SCH (21:58)
[2019-11-17] MEDS: Fluticasone Propionate Nasal Spray 16 gm Bottle NASAL SCH (21:59)
[2019-11-17] MEDS: Insulin Regular 300 UNITS/3 ML VIAL SC PRN (22:16)
[2019-11-17] MEDS: Acetaminophen 325 MG TAB PO PRN (22:16)
[2019-11-18] MEDS: Hydrocodone-Acetamin 15 ML UDCUP PO PRN ×2 (00:49→08:15)
[2019-11-18] MEDS: Sodium Chloride 0.9% 1,000 ML IV SCH (05:58)
[2019-11-18] MEDS ORDERED: Icosapent Ethyl 1 GM CAPSULE PO SCH (08:00)
[2019-11-18] MEDS: Pregabalin 75 MG CAP PO SCH (08:18)
[2019-11-18] MEDS ORDERED: EMTRICITABINE PO SCH (09:00)
[2019-11-18] MEDS ORDERED: Mirtazapine 15 MG TAB PO SCH (09:00)
[2019-11-18] MEDS ORDERED: DOLUTEGRAVIR SODIUM PO SCH (09:00)
[2019-11-18] MEDS ORDERED: OLOPATADINE HCL OP SCH (09:00)
[2019-11-18] MEDS ORDERED: DULoxetine 60 MG CAP PO SCH (09:00)
[2019-11-18] MEDS ORDERED: TENOFOV ALAFENAM PO SCH (09:00)
[2019-11-18] MEDS ORDERED: Pantoprazole 40 MG VIAL IVP SCH (09:00)
--- NOTE | 2019-11-18 09:17 | PDOC.GSPN ---
Surgery Progress Note: Subj - Subjective Patient reports: no new complaints, feels better, pain well controlled, tolerating liquids well, no bowel movement Surgery Progress Note: Obj - Vital signs Vital signs: Vital Signs - Most Recent Temp Pulse Resp BP Pulse Ox 98.5 F 84 14 126/75 92 L 11/18/19 07:47 11/18/19 08:18 11/18/19 07:47 11/18/19 08:18 11/18/19 07:47 - Physical Exam General: no distress, well developed, well nourished Cardiovascular: regular rate and rhythm Respiratory: clear to auscultation, normal expansion, normal respiratory effort , breath sounds present Abdomen: nondistended, tender (Sore at incision sites but states that it is less than it was yesterday, rates it a 4/10) Wound: healing well Surgery Progress Note: Results - Labs Lab results: Laboratory Results - last 24 hr 11/17/19 11/18/19 22:17 06:00 POC Glucose 164 H 98 Surgery Progress Note: A/P - Problem (1) Hiatal hernia Current Visit: Yes Code(s): K44.9 - DIAPHRAGMATIC HERNIA WITHOUT OBSTRUCTION OR GANGRENE Status: Acute - Plan Plan: Assessment: Esequiel Haynes is a 58 yo male 1 day post op for evaluation. 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 Pt is tolerating liquids and is ambulating. Spirometer shows 930. Plan: Continue monitoring vitals, possible discharge today.
--- NOTE | 2019-11-18 11:30 | DIS ---
DATE OF ADMISSION: 11/17/2019 DATE OF DISCHARGE: 11/18/2019 ADMITTING DIAGNOSIS: Hiatal hernia. DISCHARGE DIAGNOSIS: Hiatal hernia. PROCEDURE: Hiatal hernia repair by Dr. Bowles without complication. CONDITION ON DISCHARGE: Improved. STAFF: Zhen Bowles MD HOSPITAL COURSE: On postop day 1, the patient is ambulatory, tolerating a liquid diet. He states that his breathing is stable . He is discharged home. Prescriptions for and Zofran sent to [facility], [place]. He will do a soup diet for few days and then casserole diet until followup. He will see me back in 2 weeks. Job ID: [id number]
[2019-11-18] MEDS: Insulin Regular 300 UNITS/3 ML VIAL SC PRN (12:31)
[2019-11-18] MEDS: Acetaminophen 325 MG TAB PO PRN (14:50)
[2019-11-18] MEDS: Fluticasone Propionate Nasal Spray 16 gm Bottle NASAL SCH (15:49)
[2019-11-18 16:06] VITALS: BP 128/73; TEMP 97.8
--- NOTE | 2019-11-19 09:28 | PDOC.FMACP ---
Advance Care Planning - Problem (1) Palliative care encounter Status: Acute Code(s): Z51.5 - ENCOUNTER FOR PALLIATIVE CARE (2) Anemia due to acute blood loss Status: Acute Code(s): D62 - ACUTE POSTHEMORRHAGIC ANEMIA (3) Hiatal hernia Status: Acute Code(s): K44.9 - DIAPHRAGMATIC HERNIA WITHOUT OBSTRUCTION OR GANGRENE (4) Anemia of chronic disease Status: Chronic Code(s): D63.8 - ANEMIA IN OTHER CHRONIC DISEASES CLASSIFIED ELSEWHERE - Note Participants: patient, palliative care Summary: Palliative Care attempted to address Advanced Care Planning, opportunity to decline. Appropriate forms and documentation to accomplish the goals of care were discussed. All questions were answered. Mr Haynes elected to not complete the MPOA or directive to physician at this time, he states he has copies. Please also refer to Palliative Care notes in note section. The Palliative Care Team will be engaged to assist with completion of any outstanding forms that are needed. Time Spent (mins): 15
== END 2019-11-18 16:08 | disposition home or self-care (01) ==
LOC: SDC 11:49 → SURG A 15:36
PROVIDERS: ADMIT Surgery; ATTEND Surgery
PROC: 0DV44ZZ Restriction of Esophagogastric Junction, Percutaneous Endoscopic Approach (ICD-10-PCS; principal; 2019-11-17)
DX: K44.9 Diaphragmatic hernia without obstruction or gangrene (principal); K22.70 Barrett's esophagus without dysplasia; D62 Acute posthemorrhagic anemia; Z79.84 Long term (current) use of oral hypoglycemic drugs; Z79.899 Other long term (current) drug therapy; Z21 Asymptomatic human immunodeficiency virus [HIV] infection status; Z51.5 Encounter for palliative care
CPT/HCPCS: 43280; 82962 ×2; 94640 ×2; 96372; 96374; 96376; G0378 ×2; 36416; C9113; J0690; J1170; J1650; J1815; J2250; J2370; J2405; J2704; J3010; J7620; S0020

== ENCOUNTER 2020-04-26 13:07 | Outpatient (CLI) | payer MEDICARE, OTHER ==
--- NOTE | 2020-04-26 13:34 | RAD ---
TWO VIEW CHEST: 04/26/20 INDICATIONS: Dyspnea. COMPARISON: 03/26/19. A focal density overlying the peripheral mid right lung is stable. There is stranding into the right upper lobe which is stable. No evidence of focal infiltrate. No evidence of vascular congestion. Hear t and mediastinum unremarkable. No evidence of effusion. Osseous structures unremarkable. IMPRESSION: No acute finding. Stable nodular density in the peripheral right lung. POS: OFF
== END 2020-04-26 13:08 | disposition home or self-care (01) ==
LOC: BICRAD 13:07
PROVIDERS: ATTEND Internal Medicine Pulmonary Disease
DX: R06.00 Dyspnea, unspecified (principal); J98.4 Other disorders of lung
CPT/HCPCS: 71046

== ENCOUNTER 2020-07-26 12:54 | Outpatient (CLI) | payer MEDICARE, MEDICAID | END 2020-07-26 12:55 | disposition home or self-care (01) | LOC: BICRAD 12:54 | PROVIDERS: ATTEND Internal Medicine Pulmonary Disease | DX: R06.00 Dyspnea, unspecified (principal); J98.4 Other disorders of lung | CPT/HCPCS: 71046 ==

== ENCOUNTER 2020-08-25 11:05 | Outpatient (CLI) | payer MEDICARE, MEDICAID ==
[~2020-08-25 11:05] MED LIST changes: -Albuterol Sulfate HFA (OR ONLY) ONE; -EPHEDRINE 25 MG/5 ML SYRINGE ONE; -Glycopyrrolate 0.2 MG/ML 5 ML SYRINGE ONE; +Iopamidol-370 76% 500 ML 1 ML ONE; -Lidocaine 1% PF 5 ML VIAL ONE; -Ondansetron PF 4 MG/2 ML Vial ONE; -PHENYLEPHRINE-NS 100 MCG/ML 10 ML SYRINGE ONE; -PROPOFOL 200 MG/20 ML VIAL ONE; -Rocuronium Bromide 10 MG/ML (10ML VIAL) ONE; -Succinylcholine Chloride 20 MG/ML 10 ml SYRINGE FS ONE
== END 2020-08-25 11:06 | disposition home or self-care (01) ==
LOC: BICCT 11:05
PROVIDERS: ATTEND Internal Medicine Pulmonary Disease
DX: R91.1 Solitary pulmonary nodule (principal); I25.10 Atherosclerotic heart disease of native coronary artery without angina pectoris
CPT/HCPCS: 71260; 82565

== ENCOUNTER 2021-04-18 11:09 | Outpatient (CLI) | payer MEDICARE, OTHER ==
[2021-04-18 12:34] LABS: #Basophils 0.1 10x3/uL (0.0-0.2); #Eosinphils 0.2 10x3/uL (0.0-0.5); #Monocytes 0.8 10x3/uL (0.0-1.1); #Neutrophils 7.3 10x3/uL (1.5-8.4); %Basophils 0.5 % (0.0-2.0); %Eosinophils 1.6 % (0.0-6.0); %Lymphocytes 20.8 % (18.0-47.0); %Monocytes 7.4 % (0.0-10.0); %Neutrophils 68.2 % (40.0-75.0); Hemoglobin 15.2 g/dL (13.5-17.5); Mean Corpuscular HGB CONC 31.9 g/dL (32.0-36.0); Mean Corpuscular Hemoglobin 28.4 pg (27.0-33.0); Mean Platelet Volume 8.9 fl (7.4-10.4); Platelet Count 287 10x3/uL (150-450); RBC Distribution Width 14.1 % (11.5-14.5); Red Blood Cell (RBC) Count 5.35 10x6/uL (4.32-5.72); White Blood Cell (WBC) Count 10.7 10x3/uL (3.5-10.5)
[2021-04-18 12:47] LABS: Prothrombin Time 11.2 sec (9.5-12.1)
[2021-04-18 12:51] LABS: Anion Gap 14 mmol/L (10-20); BUN (Urea Nitrogen) 19 mg/dL (8.4-25.7); Calc. Creatinine Clearance 0 mL/min (70-130); Calcium 9.5 mg/dL (7.8-10.44); Carbon Dioxide 30 mmol/L (22-29); Chloride 103 mmol/L (98-107); Glucose 81 mg/dL (70-105); Potassium 5.1 mmol/L (3.5-5.1); Sodium 142 mmol/L (136-145)
[2021-04-18 21:07] LABS: SARS-CoV-2 PCR by NAA Not Detected (NotDetected)
== END 2021-04-18 11:10 | disposition home or self-care (01) ==
LOC: LABBT 11:09
PROVIDERS: ATTEND Orthopaedic Surgery
DX: Z01.818 Encounter for other preprocedural examination (principal); M16.11 Unilateral primary osteoarthritis, right hip; Z20.822 Contact with and (suspected) exposure to COVID-19
CPT/HCPCS: 80048; 85025; 85610; 87081; 93005; U0003; U0005; 93010

== ENCOUNTER 2021-04-25 12:13 | Outpatient (CLI) | payer MEDICARE, OTHER ==
[2021-04-25 23:03] LABS: SARS-CoV-2 PCR by NAA Not Detected (NotDetected)
== END 2021-04-25 12:14 | disposition home or self-care (01) ==
LOC: LABBT 12:13
PROVIDERS: ATTEND Orthopaedic Surgery
DX: Z01.812 Encounter for preprocedural laboratory examination (principal); M16.11 Unilateral primary osteoarthritis, right hip; Z20.822 Contact with and (suspected) exposure to COVID-19
CPT/HCPCS: U0003; U0005

== ENCOUNTER 2021-04-30 06:18 | Inpatient (IN) | payer MEDICARE, OTHER ==
[~2021-04-30 06:18] MED LIST changes: +HYDROcodone/Acetaminophen 10/325 mg Tablet PO PRN; -Iopamidol-370 76% 500 ML 1 ML ONE
[2021-04-30] MEDS ORDERED: Tranexamic Acid 1,000 MG/10 ML VIAL ONE (07:37)
[2021-04-30] MEDS ORDERED: Sodium Chloride 0.9% 100 ML ONE (07:37)
[2021-04-30] MEDS ORDERED: Vancomycin 1 GM/200 ML BAG ONE (07:37)
[2021-04-30] MEDS ORDERED: Promethazine HCl 25 MG/ML VIAL IM PRN ×2 (08:52→10:43)
[2021-04-30] MEDS ORDERED: Ondansetron PF 4 MG/2 ML Vial IVP PRN (08:52)
[2021-04-30] MEDS ORDERED: Zolpidem Tartrate 5 MG TAB PO PRN (08:52)
[2021-04-30] MEDS ORDERED: Fentanyl 100 MCG/2 ML VIAL SLOW IVP PRN ×2 (08:52)
[2021-04-30] MEDS ORDERED: diphenhydrAMINE 25 MG CAP PO PRN (08:52)
[2021-04-30] MEDS ORDERED: Acetaminophen 325 MG TAB PO PRN (08:52)
[2021-04-30] MEDS ORDERED: HYDROcodone/Acetaminophen 10/325 mg Tablet PO PRN (08:54)
[2021-04-30] MEDS ORDERED: Midazolam HCl 2 mg/2 ml Vial ONE (08:54)
[2021-04-30] MEDS ORDERED: Non-Formulary Item 1 EACH (Multivitamin/Iron/Folic Acid [Centrum Adults Tablet] 1 EACH Ta PO SCH (09:00)
[2021-04-30] MEDS ORDERED: Bupivacaine PF 0.5% 30 ML VIAL ONE (09:04)
[2021-04-30] MEDS ORDERED: ceFAZolin Sodium (SDC) 2 GM/100 ML BAG ONE (09:12)
[2021-04-30] MEDS ORDERED: Fentanyl 250 MCG/5 ML VIAL ONE (09:17)
[2021-04-30] MEDS ORDERED: PROPOFOL 200 MG/20 ML VIAL ONE (09:41)
[2021-04-30] MEDS ORDERED: Bupivacaine HCl 0.5%/Epinephrine 1:200,000/PF 30 ml Vial ONE (09:41)
[2021-04-30] MEDS ORDERED: Albuterol 200 PUFF (6.7GM INHALER) INH PRN (10:23)
[2021-04-30] MEDS ORDERED: Promethazine HCl 25 MG/ML VIAL IVPB PRN (10:43)
[2021-04-30] MEDS ORDERED: Ondansetron HCl/PF 4 MG/2 ML Vial IVP PRN (10:43)
[2021-04-30] MEDS ORDERED: Heparin 1,000 UNITS/ML VIAL ONE (11:15)
[2021-04-30 11:50] VITALS: BMI 24.4
[2021-04-30] MEDS: ALPRAZolam 0.5 MG TAB PO SCH ×3 (12:15→21:26)
[2021-04-30] MEDS: Aspirin 81 mg Enteric Coated Tablet PO SCH ×2 (12:15→21:26)
[2021-04-30] MEDS: Tamsulosin HCl 0.4 MG CAP PO SCH ×2 (12:16→21:22)
[2021-04-30] MEDS: DULoxetine 60 MG CAP PO SCH ×2 (12:16→21:22)
[2021-04-30] MEDS: Sodium Chloride 0.9% 1,000 ML IV SCH ×2 (12:19→21:27)
[2021-04-30] MEDS ORDERED: OLOPATADINE HCL EA EYE PRN (13:07)
[2021-04-30 14:20] LABS: #Eosinphils 0.2 thou/uL (0.0-0.7); #Lymphocytes 1.4 thou/uL (1.20-3.40); #Monocytes 0.5 thou/uL (0.11-0.59); %Basophils 0.1 % (0.0-1.0); %Lymphocytes 19.3 % (21.0-51.0); %Monocytes 7.4 % (0.0-10.0); %Neutrophils 70.2 % (42.0-75.0); Mean Corpuscular HGB CONC 32.6 g/dL (32.0-36.0); Mean Corpuscular Hemoglobin 29.4 pg (27.0-31.0); Mean Corpuscular Volume 90.3 fL (78.0-98.0); Mean Platelet Volume 6.8 fL (7.4-10.4); Platelet Count 237 thou/uL (130-400); RBC Distribution Width 13.7 % (11.5-14.5); Red Blood Cell (RBC) Count 4.76 mill/uL (4.70-6.10); White Blood Cell (WBC) Count 7.1 thou/uL (4.8-10.8)
[2021-04-30] MEDS: Ketorolac Tromethamine 30 MG/ML VIAL IVP SCH ×2 (15:02→21:25)
[2021-04-30] MEDS ORDERED: CEFAZOLIN 2 GM, IV Admixture Fee-Chemo 1 UNITS in Sodium Chloride 0.9% 100 ML IVPB SCH (17:00)
[2021-04-30] MEDS: metFORMIN XR 500 MG TAB PO SCH (17:11)
[2021-04-30] MEDS: Icosapent Ethyl 1 GM CAPSULE PO SCH (18:23)
[2021-04-30] MEDS: Alogliptin 6.25 MG TAB PO SCH (18:24)
[2021-04-30] MEDS: CEFAZOLIN 2 GM, Admixture Fee 1 EACH in Sodium Chloride 0.9% 100 ML IVPB SCH (18:25)
[2021-04-30] MEDS ORDERED: FLUTICASONE PROPIONATE EA NARE SCH (21:00)
[2021-04-30] MEDS: Vancomycin HCl 1.5 GM in Sodium Chloride 0.9% 250 ML 300 ML IVPB SCH (21:21)
[2021-04-30] MEDS: Rosuvastatin 20 MG TAB PO SCH (21:22)
[2021-04-30] MEDS: Pregabalin 75 MG CAP PO SCH (21:23)
[2021-04-30] MEDS: Mirtazapine 15 MG TAB PO SCH (21:25)
[2021-04-30] MEDS: Lantus 1000 UNITS/10 ML VIAL SC SCH (21:54)
[2021-05-01] MEDS: CEFAZOLIN 2 GM, Admixture Fee 1 EACH in Sodium Chloride 0.9% 100 ML IVPB SCH ×2 (02:06→11:36)
[2021-05-01 05:19] LABS: Hemoglobin 13.8 g/dL (14.0-18.0); Mean Corpuscular HGB CONC 33.4 g/dL (32.0-36.0); Mean Corpuscular Volume 89.9 fL (78.0-98.0); Mean Platelet Volume 6.5 fL (7.4-10.4); Platelet Count 230 thou/uL (130-400); Red Blood Cell (RBC) Count 4.58 mill/uL (4.70-6.10); White Blood Cell (WBC) Count 8.3 thou/uL (4.8-10.8)
[2021-05-01] MEDS: Sodium Chloride 0.9% 1,000 ML IV SCH ×2 (05:21→16:19)
[2021-05-01] MEDS: Ketorolac Tromethamine 30 MG/ML VIAL IVP SCH ×3 (05:25→20:22)
[2021-05-01] MEDS ORDERED: Sodium Chloride 0.65% Nasal 44 ML BOT EA NARE PRN (08:07)
[2021-05-01] MEDS ORDERED: Loperamide HCl 2 MG CAP PO PRN (08:07)
[2021-05-01] MEDS ORDERED: Hydrocerin (Eucerin) Cream 120 gm Jar TOP PRN (08:07)
[2021-05-01] MEDS ORDERED: hydrALAZINE 20 MG/ML VIAL SLOW IVP PRN (08:07)
[2021-05-01] MEDS ORDERED: Artificial Tear Sol 15 ML BOT EA EYE PRN (08:07)
[2021-05-01] MEDS ORDERED: GUAIFENESIN SF SOLN 200 MG/10 ML UDCUP PO PRN (08:07)
[2021-05-01] MEDS: Senokot S 8.6-50 MG TAB PO SCH ×2 (08:28→22:02)
[2021-05-01] MEDS: Pregabalin 75 MG CAP PO SCH ×2 (08:28→20:23)
[2021-05-01] MEDS: metFORMIN XR 500 MG TAB PO SCH ×2 (08:29→17:15)
[2021-05-01] MEDS: Ferrous Gluconate 324 MG TAB PO SCH ×2 (08:29→17:15)
[2021-05-01] MEDS: ALPRAZolam 0.5 MG TAB PO SCH ×3 (08:29→20:25)
[2021-05-01] MEDS: DULoxetine 60 MG CAP PO SCH ×2 (08:29→20:32)
[2021-05-01] MEDS: Multivitamin W/ Minerals 1 TAB PO SCH (08:29)
[2021-05-01] MEDS: Tamsulosin HCl 0.4 MG CAP PO SCH ×2 (08:29→20:32)
[2021-05-01] MEDS: Aspirin 81 mg Enteric Coated Tablet PO SCH ×2 (08:29→20:31)
[2021-05-01] MEDS ORDERED: DOLUTEGRAVIR SODIUM PO SCH (09:00)
[2021-05-01] MEDS ORDERED: Linaclotide [Linzess] 290 MCG Capsule PO SCH (09:00)
[2021-05-01] MEDS: Alogliptin 6.25 MG TAB PO SCH ×2 (09:48→17:15)
[2021-05-01] MEDS: Vancomycin HCl 1.5 GM in Sodium Chloride 0.9% 250 ML 300 ML IVPB SCH ×2 (09:48→22:02)
[2021-05-01] MEDS ORDERED: CEFAZOLIN 2 GM, Admixture Fee 1 EACH in Sodium Chloride 0.9% 100 ML IVPB SCH (10:00)
[2021-05-01] MEDS: Icosapent Ethyl 1 GM CAPSULE PO SCH ×2 (10:12→17:55)
[2021-05-01 14:46] LABS: Anion Gap 15 mmol/L (10-20); BUN (Urea Nitrogen) 18 mg/dL (8.4-25.7); Calc. Creatinine Clearance 79 mL/min (70-130); Calcium 9.6 mg/dL (7.8-10.44); Carbon Dioxide 23 mmol/L (22-29); Chloride 106 mmol/L (98-107); Glucose 175 mg/dL (70-105); Potassium 3.8 mmol/L (3.5-5.1); Sodium 140 mmol/L (136-145)
[2021-05-01] MEDS: cefTRIAXone\\ROCEPHIN 2 GM in Sodium Chloride 0.9% 100 ML IVPB SCH (15:23)
[2021-05-01] MEDS: Mirtazapine 15 MG TAB PO SCH (20:24)
[2021-05-01] MEDS: Rosuvastatin 20 MG TAB PO SCH (20:26)
[2021-05-01] MEDS: Lantus 1000 UNITS/10 ML VIAL SC SCH (20:39)
[2021-05-01 20:56] LABS: Vancomycin, Trough 18.4 ug/mL
[2021-05-02] MEDS: Sodium Chloride 0.9% 1,000 ML IV SCH ×3 (01:57→20:53)
[2021-05-02 05:24] LABS: #Eosinphils 0.1 thou/uL (0.0-0.7); #Lymphocytes 1.7 thou/uL (1.20-3.40); #Monocytes 0.5 thou/uL (0.11-0.59); #Neutrophils 5.1 thou/uL (1.40-6.50); %Basophils 0.3 % (0.0-1.0); %Eosinophils 1.6 % (0.0-10.0); %Lymphocytes 22.7 % (21.0-51.0); %Neutrophils 68.5 % (42.0-75.0); Hemoglobin 13.7 g/dL (14.0-18.0); Mean Corpuscular HGB CONC 32.3 g/dL (32.0-36.0); Mean Corpuscular Volume 89.7 fL (78.0-98.0); Mean Platelet Volume 6.6 fL (7.4-10.4); Platelet Count 232 thou/uL (130-400); Red Blood Cell (RBC) Count 4.72 mill/uL (4.70-6.10); White Blood Cell (WBC) Count 7.5 thou/uL (4.8-10.8)
[2021-05-02] MEDS: Ketorolac Tromethamine 30 MG/ML VIAL IVP SCH ×2 (05:42→15:09)
[2021-05-02 06:21] LABS: ALT (SGPT) 16 U/L (8-55); AST (SGOT) 30 U/L (5-34); Albumin 3.7 g/dL (3.5-5.0); Alkaline Phosphatase 67 U/L (40-110); Anion Gap 11 mmol/L (10-20); BUN (Urea Nitrogen) 17 mg/dL (8.4-25.7); Bilirubin, Total 0.3 mg/dL (0.2-1.2); Calc. Creatinine Clearance 86 mL/min (70-130); Calcium 9.5 mg/dL (7.8-10.44); Carbon Dioxide 25 mmol/L (22-29); Chloride 107 mmol/L (98-107); Globulin 3.3 g/dL (2.4-3.5); Glucose 123 mg/dL (70-105); Magnesium 2.2 mg/dL (1.6-2.6); Phosphorus 3.2 mg/dL (2.3-4.7); Potassium 3.6 mmol/L (3.5-5.1); Sodium 139 mmol/L (136-145)
[2021-05-02] MEDS: Alogliptin 6.25 MG TAB PO SCH ×2 (09:12→18:12)
[2021-05-02] MEDS: Icosapent Ethyl 1 GM CAPSULE PO SCH ×2 (09:12→18:17)
[2021-05-02] MEDS: Senokot S 8.6-50 MG TAB PO SCH ×2 (09:12→20:39)
[2021-05-02] MEDS: Multivitamin W/ Minerals 1 TAB PO SCH (09:12)
[2021-05-02] MEDS: Aspirin 81 mg Enteric Coated Tablet PO SCH ×2 (09:12→20:41)
[2021-05-02] MEDS: metFORMIN XR 500 MG TAB PO SCH ×2 (09:13→18:12)
[2021-05-02] MEDS: Enoxaparin Sodium 40 MG/0.4 ML SYRINGE SC SCH (09:13)
[2021-05-02] MEDS: Tamsulosin HCl 0.4 MG CAP PO SCH ×2 (09:13→20:42)
[2021-05-02] MEDS: Pregabalin 75 MG CAP PO SCH ×2 (09:13→20:41)
[2021-05-02] MEDS: Ferrous Gluconate 324 MG TAB PO SCH ×2 (09:13→18:12)
[2021-05-02] MEDS: DULoxetine 60 MG CAP PO SCH ×2 (09:13→20:42)
[2021-05-02] MEDS: ALPRAZolam 0.5 MG TAB PO SCH ×3 (09:13→20:42)
[2021-05-02] MEDS: Vancomycin HCl 1.5 GM in Sodium Chloride 0.9% 250 ML 300 ML IVPB SCH ×2 (09:14→20:39)
[2021-05-02] MEDS: cefTRIAXone\\ROCEPHIN 2 GM in Sodium Chloride 0.9% 100 ML IVPB SCH (15:09)
[2021-05-02] MEDS: Rosuvastatin 20 MG TAB PO SCH (20:40)
[2021-05-02] MEDS: Mirtazapine 15 MG TAB PO SCH (20:41)
[2021-05-02] MEDS: Lantus 1000 UNITS/10 ML VIAL SC SCH (20:42)
[2021-05-03] MEDS: Sodium Chloride 0.9% 1,000 ML IV SCH ×2 (07:00→17:48)
[2021-05-03 08:12] LABS: Vancomycin, Trough 23.5 ug/mL
[2021-05-03] MEDS ORDERED: VANCOMYCIN 1.25 GM/250 ML BAG 1.25 GM in Premix Bag 1 BAG IVPB SCH (09:00)
[2021-05-03] MEDS: Senokot S 8.6-50 MG TAB PO SCH ×2 (09:47→20:32)
[2021-05-03] MEDS: Enoxaparin Sodium 40 MG/0.4 ML SYRINGE SC SCH (09:47)
[2021-05-03] MEDS: Alogliptin 6.25 MG TAB PO SCH ×2 (09:48→16:36)
[2021-05-03] MEDS: metFORMIN XR 500 MG TAB PO SCH ×2 (09:48→16:36)
[2021-05-03] MEDS: Icosapent Ethyl 1 GM CAPSULE PO SCH ×2 (09:48→17:30)
[2021-05-03] MEDS: DULoxetine 60 MG CAP PO SCH ×2 (09:49→20:32)
[2021-05-03] MEDS: Pregabalin 75 MG CAP PO SCH ×2 (09:49→20:30)
[2021-05-03] MEDS: Multivitamin W/ Minerals 1 TAB PO SCH (09:49)
[2021-05-03] MEDS: Aspirin 81 mg Enteric Coated Tablet PO SCH ×2 (09:49→20:32)
[2021-05-03] MEDS: ALPRAZolam 0.5 MG TAB PO SCH ×3 (09:50→20:32)
[2021-05-03] MEDS: Tamsulosin HCl 0.4 MG CAP PO SCH ×2 (09:50→20:32)
[2021-05-03] MEDS: Ferrous Gluconate 324 MG TAB PO SCH ×2 (09:50→16:36)
[2021-05-03] MEDS: VANCOMYCIN 1.25 GM/250 ML BAG 1.25 GM in Premix Bag 1 BAG IVPB SCH (16:30)
[2021-05-03] MEDS: cefTRIAXone\\ROCEPHIN 2 GM in Sodium Chloride 0.9% 100 ML IVPB SCH (16:32)
[2021-05-03] MEDS: Rosuvastatin 20 MG TAB PO SCH (20:31)
[2021-05-03] MEDS: Mirtazapine 15 MG TAB PO SCH (20:32)
[2021-05-03] MEDS: Lantus 1000 UNITS/10 ML VIAL SC SCH (20:32)
[2021-05-04] MEDS: Sodium Chloride 0.9% 1,000 ML IV SCH (03:37)
[2021-05-04] MEDS: VANCOMYCIN 1.25 GM/250 ML BAG 1.25 GM in Premix Bag 1 BAG IVPB SCH (04:09)
[2021-05-04 08:30] VITALS: BP 126/69; TEMP 98.3
[2021-05-04] MEDS: metFORMIN XR 500 MG TAB PO SCH (08:51)
[2021-05-04] MEDS: Senokot S 8.6-50 MG TAB PO SCH (08:51)
[2021-05-04] MEDS: Icosapent Ethyl 1 GM CAPSULE PO SCH (08:51)
[2021-05-04] MEDS: Aspirin 81 mg Enteric Coated Tablet PO SCH (08:51)
[2021-05-04] MEDS: Pregabalin 75 MG CAP PO SCH (08:52)
[2021-05-04] MEDS: Multivitamin W/ Minerals 1 TAB PO SCH (08:52)
[2021-05-04] MEDS: Alogliptin 6.25 MG TAB PO SCH (08:52)
[2021-05-04] MEDS: Tamsulosin HCl 0.4 MG CAP PO SCH (08:52)
[2021-05-04] MEDS: DULoxetine 60 MG CAP PO SCH (08:52)
[2021-05-04] MEDS: Enoxaparin Sodium 40 MG/0.4 ML SYRINGE SC SCH (08:53)
[2021-05-04] MEDS: Ferrous Gluconate 324 MG TAB PO SCH (08:53)
[2021-05-04] MEDS: ALPRAZolam 0.5 MG TAB PO SCH (08:53)
[2021-05-04] MEDS: cefTRIAXone\\ROCEPHIN 2 GM in Sodium Chloride 0.9% 100 ML IVPB SCH (09:58)
== END 2021-05-04 12:07 | disposition home health service (06) | DRG 970 ==
LOC: SDC 06:18 → SURG B 08:52
PROVIDERS: ADMIT Orthopaedic Surgery; ATTEND Orthopaedic Surgery
PROC: 0SB90ZZ Excision of Right Hip Joint, Open Approach (ICD-10-PCS; principal; 2021-04-30)
PROC: 3E0T3BZ Introduction of Anesthetic Agent into Peripheral Nerves and Plexi, Percutaneous Approach (ICD-10-PCS; 2021-04-30)
PROC: 02HV33Z Insertion of Infusion Device into Superior Vena Cava, Percutaneous Approach (ICD-10-PCS; 2021-05-03)
PROC: B5181ZA Fluoroscopy of Superior Vena Cava using Low Osmolar Contrast, Guidance (ICD-10-PCS; 2021-05-03)
PROC: B548ZZA Ultrasonography of Superior Vena Cava, Guidance (ICD-10-PCS; 2021-05-03)
DX: B20 Human immunodeficiency virus [HIV] disease (principal); M00.9 Pyogenic arthritis, unspecified; M87.051 Idiopathic aseptic necrosis of right femur; M16.11 Unilateral primary osteoarthritis, right hip; Z96.641 Presence of right artificial hip joint; I10 Essential (primary) hypertension; E78.5 Hyperlipidemia, unspecified; F41.9 Anxiety disorder, unspecified; F32.9 Major depressive disorder, single episode, unspecified; N40.0 Benign prostatic hyperplasia without lower urinary tract symptoms; J45.909 Unspecified asthma, uncomplicated; E11.42 Type 2 diabetes mellitus with diabetic polyneuropathy; G89.29 Other chronic pain; D63.8 Anemia in other chronic diseases classified elsewhere; Z79.899 Other long term (current) drug therapy; Z79.82 Long term (current) use of aspirin; Z90.89 Acquired absence of other organs; Z90.49 Acquired absence of other specified parts of digestive tract; Z80.6 Family history of leukemia; Z87.891 Personal history of nicotine dependence
CPT/HCPCS: 36415; 36416; 36569; 72170; 80048; 80053; 80202; 83735; 84100; 85025; 85027; 86140; 87070; 87205; 88305; 94640; C1751; J0690; J0696; J1644; J1650; J1815; J1885; J2250; J2704; J3010; J3370; J3490; J7050; J7620; S0020